=== PATIENT | female | born 1940 | race Two or more races ===

== ENCOUNTER 2022-06-26 05:25 | Day surgery (SDC) | payer OTHER ==
[~2022-06-26 05:25] MED LIST: ALEVE220 M1 PO; CEFADROXIL500 MG PO; COZAAR25 MG PO; GLUCOPHAGE XR500 MG PO; METFORMIN HCL1000 M2 PO; NORVASC2.5 M1 PO; PERCOCET 5/321 UDTAB PO; SYNTHROID100 MCG PO; SYNTHROID75 MCG PO; TOPROL XL50 M1 PO
== END 2022-06-26 12:05 | disposition home or self-care (01) ==
LOC: CIR.AMB 05:25
PROVIDERS: ATTEND Orthopaedic Surgery
DX: M75.122 Complete rotator cuff tear or rupture of left shoulder, not specified as traumatic (principal); M75.22 Bicipital tendinitis, left shoulder; M24.112 Other articular cartilage disorders, left shoulder; I10 Essential (primary) hypertension; E11.9 Type 2 diabetes mellitus without complications

== ENCOUNTER → 2025-03-26 | Emergency (ER) | payer OTHER ==
[~2025-03-26] VITALS: Ht 162.6 cm; Wt 56.2 kg
[~2025-03-26] MED LIST changes: +ACETAMINOPHEN 500 MG GEL..CAP PO STA; +AMLODIPINE BESYLATE 2.5 MG TABLET PO ONE; +ATORVASTATIN CALCIUM 40 MG TABLET PO ONE; +DEXAMETHASONE SODIUM PHOSPHATE 4 MG/ML VIAL IM STA
[2025-03-26 20:57] LABS: BASO % 0.6 % (0.1-1.2); EOS # 0.08 (0.04-0.54); EOS % 1.2 % (0.7-7.0); LYMPH # 1.42 (1.18-3.74); LYMPH % 20.8 % (19.3-53.1); MEAN PLATELET VOLUME 10.20 fl (9.4-12.4); MONO # 0.45 (0.24-0.82); MONO % 6.6 % (4.7-12.5); NEUT # 4.83 (1.56-6.13); NEUT % 70.5 % (34.0-71.1); RED CELL DISTRIBUTION WIDTH 12.9 % (11.6-14.4)
[2025-03-26 21:45] LABS: BUN CREA RATIO 17.0 (7.0-25.0); CREATININE SERUM 1.21 mg/dL (0.55-1.02); GFR 42.49; GLUCOSE FASTING 122.0 mg/dL (65-100); OSMOLALITY SERUM 286.0 MOSM/KG (275-295); TSH 0.378 uIU/mL (0.358-3.74)
[2025-03-26 23:25] LABS: INR 1.04
== END | disposition designated cancer center or children's hospital (05) ==
LOC: ER 18:21
PROVIDERS: General Practice
DX: R29.90 Unspecified symptoms and signs involving the nervous system (principal); V89.2XXA Person injured in unspecified motor-vehicle accident, traffic, initial encounter; H57.12 Ocular pain, left eye; R20.0 Anesthesia of skin; I10 Essential (primary) hypertension; E11.9 Type 2 diabetes mellitus without complications; Z79.84 Long term (current) use of oral hypoglycemic drugs
CPT/HCPCS: 36415; 70450; 70486; 72125; 93005; 96372; 99285; J1100